=== PATIENT | female | born 1970 | race Two or more races ===

== ENCOUNTER → 2017-01-06 | Outpatient (CLI) | payer OTHER ==
[~2017-01-06] MED LIST: NONE PER PT
== END | disposition home or self-care (01) ==
LOC: MERGE 12:30 → STAR 12:36
PROVIDERS: ATTEND Orthopaedic Surgery
DX: Z02.9 Encounter for administrative examinations, unspecified (principal)

== ENCOUNTER 2017-01-10 10:15 | Day surgery (SDC) | payer OTHER ==
[2017-01-06 13:34] VITALS: BP 136/87
[~2017-01-10] VITALS: Ht 162.6 cm; Wt 65.2 kg
[~2017-01-10 10:15] MED LIST changes: +BUPIVACAINE/PF 0.5% ONE; +EPINEPHRINE 1 MG/ML, 1ML ONE; +LIDOCAINE/PF 1%, 30ML ONE; +ROPIvacaine/PF 0.5%, 30 ML ONE
[2017-01-10] MEDS ORDERED: LACTATED RINGERS 1,000 ML IV SCH (10:48)
[2017-01-10 10:50] VITALS: BP 136/87
[2017-01-10] MEDS ORDERED: LIDOCAINE 1%, 2ML SQ PRN (11:00)
[2017-01-10] MEDS ORDERED: CEFAZOLIN 1,000 MG ONE (11:42)
[2017-01-10] MEDS ORDERED: PROPOFOL 10 MG/ML, 20ML ONE (11:42)
[2017-01-10] MEDS ORDERED: ROCURONIUM 10 MG/ML ONE (11:42)
[2017-01-10] MEDS ORDERED: OXYcodone 5 MG/5 ML ORAL.SOL UDC PO PRN (13:30)
[2017-01-10] MEDS ORDERED: ONDANSETRON 2MG/ML, 2ML IVPush PRN (13:30)
[2017-01-10] MEDS ORDERED: HYDROmorphone 1 MG/ML, 1ML IV PRN (13:30)
[2017-01-10] MEDS ORDERED: MEPERIDINE/PF 25MG/0.5ML IVPush PRN (13:30)
[2017-01-10] MEDS ORDERED: ACETAMINOPHEN 325 MG TABLET PO PRN (13:30)
[2017-01-10] MEDS ORDERED: FENTANYL PF 100 MCG/2ML IV PRN (13:30)
== END 2017-01-10 17:00 ==
LOC: OUT 10:15
PROVIDERS: ATTEND Orthopaedic Surgery
DX: M75.111 Incomplete rotator cuff tear or rupture of right shoulder, not specified as traumatic (principal); M19.011 Primary osteoarthritis, right shoulder; M65.811 Other synovitis and tenosynovitis, right shoulder; M75.41 Impingement syndrome of right shoulder
CPT/HCPCS: 29822; 29824; 29826; 29827; J0171; J0690; J2704; J2795; J3490; J7120